=== PATIENT | female | born 1990 | race Caucasian/White ===

== ENCOUNTER 2018-11-17 17:19 | Emergency (ER) | payer SELFPAY | END 2018-11-17 19:42 | disposition left against medical advice (07) | LOC: ER 17:19 | DX: Z53.21 Procedure and treatment not carried out due to patient leaving prior to being seen by health care provider (principal) ==

== ENCOUNTER 2018-11-18 13:07 | Emergency (ER) | payer OTHER ==
[~2018-11-18] VITALS: Ht 175.3 cm; Wt 81.7 kg
[2018-11-18 14:09] LABS: Source, Urine Clean Catch
[2018-11-18 14:15] LABS: Bilirubin, Urine Neg (Neg); Blood, Urine Neg (Neg); Glucose Qualitative, Urine Neg (Neg); Ketones, Urine 4+ (Neg); Leukocyte Esterase, Urine Neg (Neg); Nitrite, Urine Neg (Neg); Protein, Urine Neg (Neg); Specific Gravity, Urine 1.015 (1.003-1.022); Urobilinogen, Urine NORM (Normal)
[2018-11-18 14:25] LABS: Appearance, Urine Clear (Clear); Color, Urine Yellow (P-Yellow)
== END 2018-11-18 16:05 | disposition home or self-care (01) ==
LOC: ER 13:07
PROVIDERS: Physician Assistant
DX: O20.0 Threatened abortion (principal); O34.81 Maternal care for other abnormalities of pelvic organs, first trimester; N83.202 Unspecified ovarian cyst, left side; Z3A.01 Less than 8 weeks gestation of pregnancy
CPT/HCPCS: 36415; 76801; 81003; 84702; 86900; 86901; 99284-25